=== PATIENT | male | born 1980 | race Hispanic/Latino ===

== ENCOUNTER 2021-09-28 14:45 | Emergency (ER) | payer OTHER ==
[~2021-09-28] VITALS: Ht 180.3 cm; Wt 97.3 kg
[2021-09-28 19:28] VITALS: BP 129/95
== END 2021-09-28 19:38 | disposition home or self-care (01) ==
LOC: M ED 14:45
DX: J02.9 Acute pharyngitis, unspecified (principal); R05.9 Cough, unspecified; R51.9 Headache, unspecified; Z20.822 Contact with and (suspected) exposure to COVID-19